=== PATIENT | male | born 1955 | race Caucasian/White ===

== ENCOUNTER 2018-11-20 07:26 | Inpatient (IN) | payer MEDICAID ==
[~2018-11-20] VITALS: Ht 167.6 cm; Wt 89.1 kg
--- NOTE | 2018-11-20 08:10 | ERD ---
ER Documentation Chief Complaint Chief Complaint left facial droop; left sided weakness; dizziness lwkt 1999 last night HPI This is a 63-year-old male with a past medical history of hypertension, hyperlipidemia, diabetes, stroke 1 month ago with no residual deficits, is now presenting with left-sided facial droop, dysarthria, left sided arm and leg weakness with decreased sensation, beginning when he woke up this morning at around 6 AM. His last known well time was around 8 PM last night. The patient's symptoms are beginning to improve. The patient does not endorse any alleviating or exacerbating factors. The patient denies feeling sick recently. The patient denies fever or chills. The patient has had no headache or vision changes. The patient does not endorse neck or back pain. The patient denies lightheadedness or dizziness. The patient has had no chest pain or trouble breathing. The patient denies nausea or vomiting. The patient denies abdominal pain. The patient denies changes to bowel movements or urination. ROS All systems reviewed and are negative except as per history of present illness. Medications Home Meds Reported Medications Calcium Carbonate ([id number]) 500 Mg Tablet, 500 MG PO DAILY, TAB 11/20/18 Losartan Potassium* (Losartan Potassium*) 25 Mg Tablet, 25 MG PO DAILY, TAB 11/20/18 Insulin Glargine,Hum.rec.anlog (Basaglar Kwikpen U-100) 100 Unit/1 Ml Insuln.pen, 30 UNIT SC QHS, EA 11/20/18 Metformin* (Glucophage*) 500 Mg Tab, 500 MG PO DAILY, #90 TAB 11/20/18 Aspirin* (Aspirin* Chew) 81 Mg Tab.chew, 81 MG PO DAILY, TAB.CHEW 11/20/18 Allergies Allergies: Coded Allergies: No Known Allergy (Unverified , 11/20/18) PMhx/Soc History of Surgery: No Anesthesia Reaction: No Hx Neurological Disorder: Yes (CVA with no residual deficits) Hx Respiratory Disorders: No Hx Cardiac Disorders: Yes (HTN, HLD, DM) Hx Psychiatric Problems: No Hx Miscellaneous Medical Probl: No Hx Alcohol Use: No Hx Substance Use: No Hx Tobacco Use: No FmHx Family History: No diabetes Physical Exam Vitals Vital Signs Date Temp Pulse Resp B/P (MAP) Pulse Ox O2 O2 Flow FiO2 Time Delivery Rate 11/20/18 66 14 191/116 100 09:11 (141) 11/20/18 69 171/103 08:27 (125) 11/20/18 73 183/105 08:04 (131) 11/20/18 Nasal 3 07:30 Cannula 11/20/18 98.0 76 16 169/98 96 07:26 (121) Physical Exam Const: No acute distress Head: Atraumatic Eyes: Normal Conjunctiva ENT: Normal External Ears, Nose and Mouth. Neck: Full range of motion. No meningismus. Resp: Clear to auscultation bilaterally Cardio: Regular rate and rhythm, no murmurs Abd: Soft, non tender, non distended. Normal bowel sounds Skin: No petechiae or rashes Back: No midline or flank tenderness Ext: No cyanosis, or edema Neur: Awake and alert. Mild decreased nasolabial fold on the left. 4+ out of 5 strength to the left upper and lower extremity. Subjective decreased sensation on the left, but objectively sensation is intact. Coordination is intact. Psych: Normal Mood and Affect Result Diagram: 11/20/18 0727 11/20/18 0738 Results 24 hrs Laboratory Tests Test 11/20/18 07:27 11/20/18 07:38 11/20/18 08:12 White Blood Count 5.7 10^3/ul Red Blood Count 4.68 10^6/ul Hemoglobin 12.4 g/dl Hematocrit 37.7 % Mean Corpuscular Volume 80.6 fl Mean Corpuscular Hemoglobin 26.5 pg Mean Corpuscular 32.9 g/dl Hemoglobin Concent Red Cell Distribution Width 13.2 % Platelet Count 198 10^3/UL Mean Platelet Volume 10.2 fl Immature Granulocytes % 0.400 % Neutrophils % 68.0 % Lymphocytes % 22.1 % Monocytes % 7.2 % Eosinophils % 1.6 % Basophils % 0.7 % Nucleated Red Blood Cells % 0.0 /100WBC Immature Granulocytes # 0.020 10^3/ul Neutrophils # 3.9 10^3/ul Lymphocytes # 1.3 10^3/ul Monocytes # 0.4 10^3/ul Eosinophils # 0.1 10^3/ul Basophils # 0.0 10^3/ul Nucleated Red Blood Cells # 0.0 10^3/ul Prothrombin Time 13.2 Sec Prothrombin Time Ratio 1.0 INR International Normalized Ratio 0.99 Activated Partial Thromboplast 28.6 Sec Time Sodium Level 137 mmol/L Potassium Level 3.4 mmol/L Chloride Level 99 mmol/L Carbon Dioxide Level 28 mmol/L Anion Gap 10 Blood Urea Nitrogen 15 mg/dl Creatinine 0.72 mg/dl Est Glomerular Filtrat Rate mL/min > 60 mL/min Glucose Level 326 mg/dl Hemoglobin A1c 10.6 % Calcium Level 9.2 mg/dl Creatine Kinase 93 IU/L Creatine Kinase Index 1.0 Creatinine Kinase MB (Mass) 0.91 ng/ml Troponin I < 0.012 ng/ml Triglycerides Level 135 mg/dl Cholesterol Level 214 mg/dl LDL Cholesterol, Calculated 133 mg/dl HDL Cholesterol 54 mg/dl Cholesterol/HDL Ratio 3.9 RATIO Ethyl Alcohol Level < 10.0 mg/dl Bedside Glucose 264 mg/dL Current Medications Medications Dose Sig/Tania Start Time Status Last (Trade) Ordered Route PRN Stop Time Admin Dose Reason Admin Aspirin 324 mg ONCE ONCE 11/20/18 DC 11/20/18 (Aspirin) PO 09:00 11/20/18 08:44 09:01 Clopidogrel 300 mg ONCE ONCE 11/20/18 DC 11/20/18 Bisulfate PO 09:00 11/20/18 08:53 (plaVIX) 09:01 Ondansetron 4 mg ER BRIDGE 11/20/18 HCl (Zofran PRN IV 09:00 Inj) NAUSEA/VOMITI 11/21/18 08:59 NG 650 mg ER BRIDGE 11/20/18 Acetaminophen PRN PO 09:00 (Tylenol .MILD PAIN 11/21/18 08:59 Tab) 1-3 OR TEMP Procedures/MDM MDM The patient's presentation warrants further investigation. Previous medical records, if available, were reviewed. LABS The patient's laboratory testing was obtained and reviewed. No emergent treatment was required unless described below. CBC: No E/o systemic infection or severe anemia or thrombocytopenia. Mild normocytic anemia, not emergent. Chemistry: No E/o severe acidosis or alkalosis or renal failure. Hyperglycemia without DKA. Hypokalemia, nonemergent. HbA1c: Elevated Lipid panel: Hyperlipidemia PT/INR: No E/o significant coagulopathy Troponin: No E/o acute ischemia Tox: No E/o alcohol use. EKG EKG read by me: Rate/Rhythm: Regular rate and rhythm at a rate of 78 bpm Intervals: Normal MD interval and QTc. Wide QRS in the setting of a right bundle branch block. [place]: Normal Impression: No evidence of acute ischemia or arrhythmia IMAGING Imaging and Radiology interpretation reviewed. CXR IMPRESSION: 1. Mild cardiomegaly with the pulmonary vasculature upper normal. Aorta appears tortuous. 2. Otherwise, unremarkable portable chest Electronically viewed and signed by Physician Gavino on 11/20/2018 08:26 CT Head FINDINGS: There is no intracranial hemorrhage, mass effect, or midline shift. No extra-axial fluid collection is seen. The ventricles and sulci are normal in size and configuration. The density of the brain is normal, and the vega white matter differentiation appears well-preserved. Moderate to severe atherosclerotic calcifications of the carotid siphons and intracranial vertebral arteries. The visualized paranasal sinuses and osseous structures are grossly unremarkable. IMPRESSION: 1. No evidence of acute intracranial pathology. 2. Moderate to severe atherosclerotic calcifications of the carotid siphons , intracranial vertebral arteries as well as basilar artery. Findings discussed with Dr. Orbien at 07:45 a.m. on 11/20/2018. Electronically viewed and signed by Physician Randal on 11/20/2018 07:51 CTA H&N 1. No flow-limiting intracranial stenosis or aneurysm. 2. 0-50 % stenosis of the bilateral extracranial internal carotid arteries by NASCET criteria. 3. Bilateral antegrade flow in the vertebral arteries. 4. 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 The lateral wall of the left maxillary sinus is imperceptible. Diagnostic considerations include odontogenic keratocyst, a dentigerous cyst, and a mucocele. Call report: Results were called to Myrna Arango at 11/20/2018 8:25:09 AM Electronically viewed and signed by Physician Odalis on 11/20/2018 08:26 TREATMENT/DISPOSITION The patient presents with now resolved left-sided deficits, concerning for a TIA. The patient's symptoms have since resolved. A code stroke was initiated. The patient had a stroke 1 month ago. He is outside the window for TPA. He has not a thrombectomy candidate. The [facility] teleneurologist, Dr. Cain, agreed with this assessment. She also felt that the symptoms could be related to a seizure event and recommended the possibility of obtaining an EEG in the hospital. She also recommended obtaining an MRI in the hospital. The patient was given a dose of aspirin and Plavix in the emergency department. ADMISSION At this time, I feel that the patient requires admission for further evaluation and management. The patient will be admitted to panel in accordance with the patient's insurance. The patient was accepted by Dr. Velásquez at 0836AM on 11/20/2018. Disclaimer: Inadvertent spelling and grammatical errors are likely due to EHR/dictation software use and do not reflect on the overall quality of patient care. Note that the electronic time recorded on this note does not necessarily reflect the actual time of the patient encounter. Departure Diagnosis: Primary Impression: TIA (transient ischemic attack) Additional Impressions: Facial droop Left-sided weakness Dysarthria Normocytic anemia Hyperglycemia Hypercholesterolemia Hypokalemia Condition: Serious MYRNA OBRIEN MD November 20, 2018 08:10
[2018-11-20] MEDS ORDERED: LOSA25TA12 PO (08:34)
[2018-11-20] MEDS ORDERED: INSU100I33 SC (08:34)
[2018-11-20] MEDS ORDERED: METF-849 PO (08:34)
[2018-11-20] MEDS ORDERED: ASPI-903 PO (08:34)
[2018-11-20] MEDS ORDERED: CALC500T91 PO (08:35)
[2018-11-20] MEDS ORDERED: ASPIRIN 81 MG TAB PO ONE (09:00)
[2018-11-20] MEDS ORDERED: ONDANSETRON 4 MG INJ IV PRN ×2 (09:00→12:00)
[2018-11-20] MEDS ORDERED: ACETAMINOPHEN 325 MG TAB PO PRN ×2 (09:00→12:00)
[2018-11-20] MEDS ORDERED: CLOPIDOGREL 75 MG TAB PO ONE (09:00)
--- NOTE | 2018-11-20 09:16 | STROKE ---
Date/Time of Note Date/Time of Note DATE: 11/20/18 TIME: 08:48 Patient Information General Patient location: emergency Arrival Date Age 63 Gender male Weight 85 kg POC Glucose Glucose Result Bedside Glucose - 72 Hours Test 11/20/18 08:12 Bedside Glucose 264 mg/dL (70-220) H Vital Signs Vital Signs Vital Signs Date Temp Pulse Resp B/P (MAP) Pulse Ox O2 O2 Flow FiO2 Time Delivery Rate 11/20/18 69 171/103 08:27 (125) 11/20/18 Nasal 3 07:30 Cannula 11/20/18 98.0 16 96 07:26 Patient History Current Medications Allergies: Coded Allergies: No Known Allergy (Unverified , 11/20/18) Labs Coagulation Labs: Coagulation Test 11/20/18 07:38 Activated Partial Thromboplast Time 28.6 Sec (23.0-35.0) History & Physical Patient History Notes Pt Hx Reviewed History of Present Illness 63yo with cardiac risk factors, CVA 1 month ago, now presents with recurrent left sided weakness. Last normal last night at 11pm. Now with left sided weakn ess and numbness with dysarthria. Review of Systems Constitutional: no symptoms reported EENTM: no symptoms reported Respiratory: no symptoms reported Cardiovascular: no symptoms reported Gastrointestinal: no symptoms reported Genitourinary: no symptoms reported Musculoskeletal: no symptoms reported Skin: no symptoms reported Psychiatric/Neurological: no symptoms reported All Other Systems: Reviewed and Negative NIH Stroke Scale NIH Stroke Scale [id number] l4d LOC Questions: Vptbc1m LOC Commands: Grzqj6k t Gaze: Kzhnd1g Mcjcs5p alsy: Cvnur3e rm - Left: Tigjq5x ight: Voxqu9g eft: Uzqnx0w ight: Okskh2p Rlgqz9i Laboe4c Viivv9s faina: Cxonj5u Ridov3w 4Bd Total Score: Hhdeh9v Date/Time Recorded DATE: 11/20/18 TIME: 08:[address] Cain t-PA Imaging Review Imaging Reviewed: Yes Date/Time Imaging Reviewed DATE: 11/20/18 TIME: 08:48 Imaging Findings No acute changes. t-PA Administration Recommendation: No Weight 85 kg Recommedation submitted by Lane Cain Reason t-PA not Recommended outside time window t-PA Not Recommended Date/Time 07:37 5/9/19 Recommendations Impression Diagnosis TIA Recommendation 63yo M presents with acute worsening of his baseline left sided weakness. Neurological exam is unremarkable. I believe the patient has had a transient ischemic attack but differential diagnosis also includes metabolic encephalopathy and seizure. CTA of the head and neck was completed and demonstrates no large vessel occlusion, but does demonstrate calcified atheroscl erotic plaque with mild flow limiting stenosis in bilateral carotid arteries. I recommend workup include MRI Brain with and without gadolinium, EEG, and metabolic/infectious workup. Consider TTE if acute ischemic stroke is seen on MRI Brain. Further workup is pending the results of these tests. I recommend patient be be given Plavix 300mg x1 followed by aspirin 81mg daily and Plavix 75mg daily for 3 weeks then continue Plavix 75mg daily. [id number] Diagnostic Labs: Nztet1l Lipid Proile Hgb A1C CMP CBC w/Diff Coags Urinaysis [id number] Therapy: [place] [facility] Speech Therapy Occupational [facility] [place]. Recommendations: Wbsum9w Bedside Swallow Evaluation Pnumatic Compression Devices Stroke Education Smoking Education LANE CAIN November 20, 2018 08:58
[2018-11-20] MEDS ORDERED: hydrALAzine 20 MG INJ IV PRN ×2 (10:30→12:00)
[2018-11-20] MEDS ORDERED: SOD CHLORIDE 0.45% 1,000 ML IV SCH (11:49)
[2018-11-20] MEDS ORDERED: NACL 0.9% 3 ML SYG IV SCH (12:00)
[2018-11-20] MEDS ORDERED: ALBUTEROL/IPRATROPIUM (NEB) 3 ML AMP HHN PRN (12:00)
[2018-11-20] MEDS ORDERED: HYDROCODONE/APAP (5/325) TAB PO PRN (12:00)
[2018-11-20] MEDS ORDERED: MAGNESIUM HYDROXIDE 30ML CUP PO PRN (12:00)
[2018-11-20] MEDS ORDERED: morphine 2 MG INJ IV PRN (12:00)
[2018-11-20] MEDS ORDERED: LORAZEPAM 2 MG INJ IV PRN (12:00)
[2018-11-20] MEDS ORDERED: NITROGLYCERIN (SL) 0.4 MG TAB SL PRN (12:00)
[2018-11-20] MEDS ORDERED: DOCUSATE SODIUM 100 MG CAP PO PRN (12:00)
[2018-11-20] MEDS ORDERED: GLUCOSE GEL 15 GRAM TUBE BUCCAL PRN (12:30)
[2018-11-20] MEDS ORDERED: DEXTROSE 50% 50 ML SYRINGE IV PRN ×2 (12:30)
[2018-11-20] MEDS ORDERED: GLUCOSE GEL 15 GRAM TUBE PO PRN ×2 (12:30)
[2018-11-20] MEDS ORDERED: GLUCAGON 1 MG INJ IM PRN (12:30)
[2018-11-20] MEDS: INSULIN ASPART [NOVOLOG] 3 ML PEN SC SCH ×3 (12:50→22:20)
[2018-11-20] MEDS: ASPIRIN 81 MG TAB PO SCH (13:54)
[2018-11-20] MEDS: ATORVASTATIN 80 MG TAB PO SCH (13:54)
[2018-11-20] MEDS ORDERED: LORAZEPAM 2 MG INJ IV ONE (14:00)
--- NOTE | 2018-11-20 15:15 | HP ---
DATE OF ADMISSION: 11/20/2018 IDENTIFICATION: This is a 63-year-old male. CHIEF COMPLAINT: Left-sided weakness symptoms. HISTORY OF PRESENT ILLNESS: A 63-year-old male with a prior history of stroke that occurred 1 month ago treated at [facility], hypertension, diabetes, high cholesterol, who presents after extensive lef t-sided weakness symptoms. The symptoms began as a left-sided facial droop and also some dysarthria. He also had some left upper and lower extremity weakness. The symptoms began early this morning. His last known well time apparently was around 8:00 last night. Denies any upper or lower GI bleedin g. No nausea, vomiting. No fevers or chills. No diarrhea or constipation. No chest pain, shortnes s of breath. He was brought in by EMS. When he arrived, he was found to have elevated systolic bloo d pressure in the 170 to 180 range and code stroke was called and the teleneurologist evaluated the p atient who recommended further brain imaging studies including head CT and CTA of head and neck. Thi s demonstrated no large vessel occlusion, but that did demonstrate calcified atherosclerotic plaque w ith mild flow limiting stenosis in the bilateral carotid arteries. Because of that, the patient got a dose of Plavix as recommended by the neurologist. The patient also received high dose aspirin as w ell. Presently, his symptoms appear to be resolving. PAST MEDICAL HISTORY: As stated above. ALLERGIES: NO KNOWN DRUG ALLERGIES. HOME MEDICATIONS: 1. Losartan 25 mg daily. 2. Aspirin 81 mg daily. 3. Calcium carbonate 500 mg daily. 4. Glargine insulin 30 units at night. 5. Metformin 500 mg daily. PAST SURGICAL HISTORY: Apparently none. SOCIAL HISTORY: Negative for smoking, drinking or IV drug abuse. FAMILY HISTORY: Noncontributory. PHYSICAL EXAMINATION: VITAL SIGNS: Today, T-max 98.0, pulse 76 to 66, respirations 14 to 16, blood pressure 169 to 191 sys tolic over 98 to 116 diastolic, satting at presently 100% on room air. GENERAL: The patient is lying in bed. is at bedside. No acute distress. HEENT: Pupils are equal, round, reactive to light. Extraocular muscles are intact. There appears t o be a slight left-sided facial droop. I am not sure if this is acute. NECK: Supple, no thyromegaly. LUNGS: Clear to auscultation bilaterally. CARDIOVASCULAR: S1, S2 heard. No rubs or gallops. ABDOMEN: Soft, nontender, nondistended. Normal bowel sounds. No rebound or guarding. MUSCULOSKELETAL: No lower extremity edema bilaterally. NEUROLOGIC: A 5/5 strength noted on the bilateral upper and lower extremities. Sensation appears to be intact to bilateral upper and lower extremities. Again, there is slight eyelid droop and facial droop on the left side. It is unclear if this is acute. Gait was not assessed. LABORATORIES: CBC is normal. The basic metabolic panel was normal. A1c is 10.6. Sugars are elevat ed in the mid to high 200 range. Troponin is negative x1. Total cholesterol is 214, but the rest of a lipid panel appears to be within range. Coags are normal. Blood alcohol level is less than 10. DIAGNOSTIC DATA: We mentioned the head CT findings that showed no acute intracranial pathology, but there was moderate to severe atherosclerotic calcifications of the carotid siphons, intracranial vert ebral artery as well as basilar artery. CT of head and neck showed no flow limiting intracranial eber nosis or aneurysms. There is 0% to 50% stenosis of the bilateral extracranial, internal carotid danni quincy, bilateral anterograde flow in the vertebral arteries. 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 The latera l wall of the left maxillary sinus is imperceptible, rule out odontogenic keratocyst, or mucoce le. Chest x-ray showed mild cardiomegaly with pulmonary vasculature upper normal, aorta appears tort uous; otherwise unremarkable chest x-ray. Carotid Doppler showed no evidence of any hemodynamically significant stenosis in the bilateral internal carotid arteries. ASSESSMENT AND PLAN: A 63-year-old male coming in with prior history of stroke 1 month ago, hyperten lizzeth, diabetes, high cholesterol who presents with left-sided weakness symptoms, rule out acute strok e versus transient ischemic attack. 1. Left-sided weakness symptoms, again rule out acute stroke versus transient ischemic attack. Admi t the patient. Do neuro checks every 4 hours. Continue high dose aspirin. Allow for permissive hyp ertension and high dose statin. Check echocardiogram. MRI of the brain and follow up final results of carotid Doppler study. Get a neurology consult, PT, OT, speech therapy consult. Check TSH, A1c, lipid panel. Per tele neurologist's recommendations, continue Plavix for now with aspirin 81 mg. 2. Hypertension. Again, allow for permissive hypertension at this time. Only hydralazine IV 10 mg systolic greater than 220. 3. Prior history of stroke. See #1. 4. Diabetes. Follow up A1c. Add sliding scale insulin. Continue home dose of Lantus. 5. High cholesterol. Continue high dose Lipitor. 6. Deep venous thrombosis prophylaxis. SCDs. Dictated By: ROXANNA MILLS/CHRISS Conf#: [id number] DID#: [id number] CC: GIBSON GODFREY;*EndCC*
--- NOTE | 2018-11-20 17:04 | CONS ---
Assessment/Plan Assessment/Plan Hospital Course 63 yo M with multiple cerebrovascular risk factors who presents for evaluation of transient L face/arm/leg weakness and dysarthria... for which neurology is consulted. MRI brain confirms multiple acute punctate infarcts in the R centrum semiovale. CTA H/N is unremarkable Echo is unrevealing. LDL 133 P: Agree with ASA/Lipitor for secondary stroke prevention Add ESR, RPR, UDS Cont BP and other medical management per primary PT/OT/ST as necessary Will follow clinically, to recommend neurologic studies, as necessary Consultation Date/Type/Reason Admit Date/Time Type of Consult Neurology Reason for Consultation L sided weakness Requesting Provider: ROXANNA CHONG Date/Time of Note DATE: 11/20/18 TIME: 17:04 Hx of Present Illness 63 yo M with hx of CVA, HTN, DM, HLD who presented to the ED with complaints of L face/arm/leg weakness with slurred speech. History was obtained from pt, family and chart review. The pt states that sx started around 8pm on 10/20. He reports that he initially had L facial weakness with difficulty speaking. He next noticed that he began to develop L arm and leg weakness, after which 911 was called and the pt was broug ht to the ED. He states that the sx lasted until about 10:30 this morning (10/21) after which they completely resolved. He currently denies headache, weakness, dizziness, lightheadedness, vision or sp eech changes, numbness or tingling, gait instability. It is additionally elsewhere noted: CHIEF COMPLAINT: Left-sided weakness symptoms. HISTORY OF PRESENT ILLNESS: A 63-year-old male with a prior history of stroke that occurred 1 month ago treated at [facility], hypertension, diabetes, high ch olesterol, who presents after extensive left-sided weakness symptoms. The symptoms began as a left-sided facial droop and also some dysarthria. He also had some left upper and lower extremity weakness. The symptoms began early this morning. His last known well time apparently was around 8:00 last night. Denies any upper or lower GI bleeding. No nausea, vomiting. No fevers or chills. No diarrhea or constipation. No chest pain, shortness of breath. He was brought in by EMS. When he arrived, he was found to have elevated systolic blood pressure in the 170 to 180 range and code stroke was called and the teleneurologist evaluated the patient who recommended further brain imaging studies including head CT and CTA of head and neck. This demonstrated no large vessel occlusion, but that did demonstrate calcified atherosclerotic plaque with mild flow limiting stenosis in the bilateral carotid arteries. Because of that, the patient got a dose of Plavix as recommended by the neurologist. The patient also received high dose aspirin as well. Presently, his symptoms appear to be resolving. negative unless noted otherwise in HPI Exam/Review of Systems Exam Vitals Vital Signs Date Temp Pulse Resp B/P (MAP) Pulse Ox O2 O2 Flow FiO2 Time Delivery Rate 11/20/18 98.0 89 12 161/90 98 Room Air 13:40 (113) 11/20/18 3 07:30 Exam PE: Gen Appearance: No Apparent Distress HEENT: Normocephalic Cardiovascular: Regular rate Lungs: Clear bilaterally Abdomen: Soft Extremities: Dry NE: The patient was alert and oriented.. Language was normal. Fund of knowledge was normal. Pupils were equal and reactive to light. There was no afferent pupillary defect. Visual cortes were normal. Funduscopic examination was limited. Extra-ocular movements were full. Ptosis was absent. There was no nystagmus. Facial sensation was normal. Face was symmetric with normal strength. Hearing was intact. Palate movements were normal. Neck strength was normal. There was normal tongue bulk and speed of movement. Tone was normal. Muscle bulk was normal. I did not see fasciculations. Arms and legs were strong. Vibration sensation was normal. Temperature and pinprick sensation was normal. Rapid alternating movements were normal. There was no dysmetria. There was no intention tremor. Gait was deferred due to bedrest. Arm and leg reflexes were 2+ and symmetric. Arevalo's sign was absent. Plantar responses were flexor. Results Result Diagram: 11/20/18 0727 11/20/18 0738 Results 24hrs Laboratory Tests Test 11/20/18 07:27 11/20/18 07:38 11/20/18 08:12 11/20/18 12:47 White Blood Count 5.7 Red Blood Count 4.68 L Hemoglobin 12.4 L Hematocrit 37.7 L Mean Corpuscular Volume 80.6 L Mean Corpuscular 26.5 L Hemoglobin Mean Corpuscular 32.9 Hemoglobin Concent Red Cell Distribution 13.2 Width Platelet Count 198 Mean Platelet Volume 10.2 Immature Granulocytes % 0.400 Neutrophils % 68.0 Lymphocytes % 22.1 Monocytes % 7.2 Eosinophils % 1.6 Basophils % 0.7 Nucleated Red Blood 0.0 Cells % Immature Granulocytes # 0.020 Neutrophils # 3.9 Lymphocytes # 1.3 Monocytes # 0.4 Eosinophils # 0.1 Basophils # 0.0 Nucleated Red Blood 0.0 Cells # Prothrombin Time 13.2 Prothrombin Time Ratio 1.0 INR International 0.99 Normalized Ratio Activated 28.6 Partial Thromboplast Time Sodium Level 137 Potassium Level 3.4 L Chloride Level 99 Carbon Dioxide Level 28 Anion Gap 10 Blood Urea Nitrogen 15 Creatinine 0.72 Est Glomerular Filtrat > 60 Rate mL/min Glucose Level 326 H Hemoglobin A1c 10.6 H Calcium Level 9.2 Creatine Kinase 93 Creatine Kinase Index 1.0 Creatinine Kinase MB 0.91 (Mass) Troponin I < 0.012 Triglycerides Level 135 Cholesterol Level 214 H LDL Cholesterol, 133 Calculated HDL Cholesterol 54 Cholesterol/HDL Ratio 3.9 Free Thyroxine 1.20 Ethyl Alcohol Level < 10.0 H Bedside Glucose 264 H 201 Medications Medication Current Medications IV Flush (NS 3 ml) 3 ml PER PROTOCOL IV ; Start 11/20/18 at 12:00 Ondansetron HCl (Zofran Inj) 4 mg Q6H PRN IV NAUSEA/VOMITING; Start 11/20/18 at 12:00 Acetaminophen (Tylenol Tab) 650 mg Q6H PRN PO .PAIN 1-3 OR TEMP; Start 11/20/18 at 12:00 Acetaminophen/ Hydrocodone Bitart ([place] (5/325)) 1 tab Q6H PRN PO .MOD PAIN 4- 6; Start 11/20/18 at 12:00 Morphine Sulfate (morphine) 2 mg Q4H PRN IV .SEVERE PAIN 7-10; Start 11/20/18 at 12:00 Docusate Sodium (Colace) 100 mg Q12H PRN PO .CONSTIPATION; Start 11/20/18 at 12:00 Magnesium Hydroxide (Milk Of Mag) 30 ml DAILY PRN PO .CONSTIPATION; Start 11/20/18 at 12:00 Sodium Chloride 1,000 ml @ 75 mls/hr [id number] IV Last administered on 11/20/18at 13:54; Admin Dose 75 MLS/HR; Start 11/20/18 at 11:49 Lorazepam (Ativan) 0.5 mg Q6H PRN IV ANXIETY; Start 11/20/18 at 12:00 Albuterol/ Ipratropium (Duoneb) 3 ml Q4H RESP THERAPY PRN HHN SHORTNESS OF BREATH; Start 11/20/18 at 12:00 Hydralazine HCl (Apresoline) 10 mg Q6H PRN IV ELEVATED BLOOD PRESSURE; Start at 12:00 Nitroglycerin (Nitroglycerin (Sl Tab) 0.4 Mg) 1 tab Q5M PRN SL ANGINA; Start 11/20/18 at 12:00 Diagnostic Test (Pha) (Accu-Chek) 1 ea 02 XX ; Start 11/21/18 at 02:00 Insulin Aspart (Novolog Insulin Pen) NOVOLOG *MILD* ALGORI... Q4 SC ; Start 11/20/18 at 13:00 Aspirin (Aspirin) 81 mg DAILY PO Last administered on 11/20/18at 13:54; Admin Dose 81 MG; Start 11/20/18 at 12:00 Calcium Carbonate (Oyster Shell Calcium) 1.25 gm DAILY PO ; Start 11/21/18 at 09:00 Insulin Glargine (Lantus) 30 units QHS SC ; Start 11/20/18 at 21:00 Atorvastatin Calcium (Lipitor) 80 mg DAILY PO Last administered on 11/20/18at 13:54; Admin Dose 80 MG; Start 11/20/18 at 12:00 Clopidogrel Bisulfate (plaVIX) 75 mg DAILY PO ; Start 11/21/18 at 09:00 Miscellaneous Information 1 ea NOTE XX ; Start 11/20/18 at 12:30 Glucose (Glutose) 15 gm Q15M PRN PO DECREASED GLUCOSE; Start 11/20/18 at 12:30 Glucose (Glutose) 22.5 gm Q15M PRN PO DECREASED GLUCOSE; Start 11/20/18 at 12:30 Dextrose (D50w Syringe) 25 ml Q15M PRN IV DECREASED GLUCOSE; Start 11/20/18 at 12:30 Dextrose (D50w Syringe) 50 ml Q15M PRN IV DECREASED GLUCOSE; Start 11/20/18 at 12:30 Glucagon (Glucagen) 1 mg Q15M PRN IM DECREASED GLUCOSE; Start 11/20/18 at 12:30 Glucose (Glutose) 15 gm Q15M PRN BUCCAL DECREASED GLUCOSE; Start 11/20/18 at 12:30 Past Medical History reviewed Home Meds Reported Medications Calcium Carbonate ([id number]) 500 Mg Tablet, 500 MG PO DAILY, TAB 11/20/18 Losartan Potassium* (Losartan Potassium*) 25 Mg Tablet, 25 MG PO DAILY, TAB 11/20/18 Insulin Glargine,Hum.rec.anlog (Basaglar Kwikpen U-100) 100 Unit/1 Ml Insuln.pen, 30 UNIT SC QHS, EA 11/20/18 Metformin* (Glucophage*) 500 Mg Tab, 500 MG PO DAILY, #90 TAB 11/20/18 Aspirin* (Aspirin* Chew) 81 Mg Tab.chew, 81 MG PO DAILY, TAB.CHEW 11/20/18 Medications Current Medications IV Flush (NS 3 ml) 3 ml PER PROTOCOL IV ; Start 11/20/18 at 12:00 Ondansetron HCl (Zofran Inj) 4 mg Q6H PRN IV NAUSEA/VOMITING; Start 11/20/18 at 12:00 Acetaminophen (Tylenol Tab) 650 mg Q6H PRN PO .PAIN 1-3 OR TEMP; Start 11/20/18 at 12:00 Acetaminophen/ Hydrocodone Bitart ([place] (5/325)) 1 tab Q6H PRN PO .MOD PAIN 4- 6; Start 11/20/18 at 12:00 Morphine Sulfate (morphine) 2 mg Q4H PRN IV .SEVERE PAIN 7-10; Start 11/20/18 at 12:00 Docusate Sodium (Colace) 100 mg Q12H PRN PO .CONSTIPATION; Start 11/20/18 at 12:00 Magnesium Hydroxide (Milk Of Mag) 30 ml DAILY PRN PO .CONSTIPATION; Start 11/20/18 at 12:00 Sodium Chloride 1,000 ml @ 75 mls/hr [id number] IV Last administered on 11/20/18at 13:54; Admin Dose 75 MLS/HR; Start 11/20/18 at 11:49 Lorazepam (Ativan) 0.5 mg Q6H PRN IV ANXIETY; Start 11/20/18 at 12:00 Albuterol/ Ipratropium (Duoneb) 3 ml Q4H RESP THERAPY PRN HHN SHORTNESS OF BREATH; Start 11/20/18 at 12:00 Hydralazine HCl (Apresoline) 10 mg Q6H PRN IV ELEVATED BLOOD PRESSURE; Start 11/20/18 at 12:00 Nitroglycerin (Nitroglycerin (Sl Tab) 0.4 Mg) 1 tab Q5M PRN SL ANGINA; Start 11/20/18 at 12:00 Diagnostic Test (Pha) (Accu-Chek) 1 ea 02 XX ; Start 11/21/18 at 02:00 Insulin Aspart (Novolog Insulin Pen) NOVOLOG *MILD* ALGORI... Q4 SC ; Start 11/20/18 at 13:00 Aspirin (Aspirin) 81 mg DAILY PO Last administered on 11/20/18at 13:54; Admin Dose 81 MG; Start 11/20/18 at 12:00 Calcium Carbonate (Oyster Shell Calcium) 1.25 gm DAILY PO ; Start 11/21/18 at 09:00 Insulin Glargine (Lantus) 30 units QHS SC ; Start 11/20/18 at 21:00 Atorvastatin Calcium (Lipitor) 80 mg DAILY PO Last administered on 11/20/18at 13:54; Admin Dose 80 MG; Start 11/20/18 at 12:00 Clopidogrel Bisulfate (plaVIX) 75 mg DAILY PO ; Start 11/21/18 at 09:00 Miscellaneous Information 1 ea NOTE XX ; Start 11/20/18 at 12:30 Glucose (Glutose) 15 gm Q15M PRN PO DECREASED GLUCOSE; Start 11/20/18 at 12:30 Glucose (Glutose) 22.5 gm Q15M PRN PO DECREASED GLUCOSE; Start 11/20/18 at 12:30 Dextrose (D50w Syringe) 25 ml Q15M PRN IV DECREASED GLUCOSE; Start 11/20/18 at 12:30 Dextrose (D50w Syringe) 50 ml Q15M PRN IV DECREASED GLUCOSE; Start 11/20/18 at 12:30 Glucagon (Glucagen) 1 mg Q15M PRN IM DECREASED GLUCOSE; Start 11/20/18 at 12:30 Glucose (Glutose) 15 gm Q15M PRN BUCCAL DECREASED GLUCOSE; Start 11/20/18 at 12:30 Allergies: Coded Allergies: No Known Allergy (Unverified , 11/20/18) Past Surgical History reviewed Social History reviewed Smoking Status: Never smoker BRANDI GARZA NP November 20, 2018 17:04 GIBSON GODFREY November 21, 2018 06:49
[2018-11-20 19:00] VITALS: PULSE 90
--- NOTE | 2018-11-20 19:05 | RADRPT ---
Echocardiogram Report Patient Name: Krupa HAWKINSnt ID: [id number] : 1955 (63y 5m)Study Date: 11/20/2018 12:53:30 PM Gender: MAccession #: [id number] Tech: Analy Poole RDCS Location: [facility] Ref.Physician: ROXANNA CHONG Height(Cm): BSA: Weight(Kg): Quality: AdequateAccount #: Procedures: Echocardiographic Report: Transthoracic echocardiogram with complete 2D, M-Mode, and doppler examination. Indications: Transient Ischemic Attack. Measurements: 2D/M Mode Doppler Measurement Value Normal Range Measurement Value Normal Range LVIDd 2D 4.3 [ 4.2 - 5.8 ] cm AV Peak Tam 1.5 [ 100.0 - 170.0 ] cm/sec LVIDs 2D 3.1 [ 2.5 - 4.0 ] cm AV Peak PG 8.0 [ 2.0 - 9.0 ] mmHg LVPWd 2D 1.2 [ 0.6 - 1.0 ] cm LVOT Peak Tam 1.2 [ 70.0 - 110.0 ] cm/sec IVSd 2D 1.2 [ 0.6 - 1.0 ] cm LVOT Peak PG 6.0 [ 2.0 - 6.0 ] mmHg AoR Diam 2D 3.5 [ 2.6 - 3.4 ] cm MV E Peak Tam 0.7 [ 60.0 - 130.0 ] cm/sec EDV 2D 84.4 [ 62.0 - 150.0 ] ml MV A Peak Tam 0.9 [ 100.0 - 120.0 ] cm/sec ESV 2D 37.3 [ 21.0 - 61.0 ] ml MV E/A 0.7 [ 0.8 - 1.5 ] ratio EF 2D 55.8 [ 52.0 - 72.0 ] percent MV Decel Time 215 [ 104 - 258 ] msec LA Dimen 2D 3.8 [ 3.0 - 4.0 ] cm Lat E` Tam 0.1 [ 10.0 - 15.0 ] cm/sec Lateral E/E` 8.0 [ 1.0 - 2.0 ] ratio Med E` Tam 0.1 cm/sec MV E/A 0.7 [ 0.8 - 1.5 ] ratio TR Peak Tam 1.8 [ 100.0 - 280.0 ] cm/sec TR Peak PG 13.0 mmHg RVSP 16.0 [ 10.0 - 36.0 ] mmHg RA Pressure 3.0 mmHg Findings: Left Ventricle: Normal left ventricular systolic function. Normal left ventricular cavity size. Mild concentric left ventricular hypertrophy. Ejection fraction is visually estimated at 60 %. Tissue Doppler/Mitral Doppler indices are consistent with impaired relaxation (Stage I diastolic dysfunction). Right Ventricle: Normal right ventricular size. Normal right ventricular systolic function. Left Atrium: The left atrium is normal in size. Right Atrium: The right atrium is normal in size. Mitral Valve: Normal appearance and function of the mitral valve with trace physiologic regurgitation. Aortic Valve: Normal appearance of the aortic valve. No significant aortic stenosis or insufficiency. Tricuspid Valve: Normal appearance of the tricuspid valve. Estimated peak PA systolic pressure 16 mmHg. There is trace tricuspid regurgitation. Pulmonic Valve: Normal pulmonic valve appearance. Pericardium: Normal pericardium with no significant pericardial effusion. Aorta: Normal aortic root. IVC: Normal size and normal respiratory collapse consistent with normal right atrial pressure. Conclusions: Normal left ventricular systolic function. Normal left ventricular cavity size. Mild concentric left ventricular hypertrophy. Ejection fraction is visually estimated at 60 %. Tissue Doppler/Mitral Doppler indices are consistent with impaired relaxation (Stage I diastolic dysfunction). Normal right ventricular size. Normal right ventricular systolic function. The left atrium is normal in size. The right atrium is normal in size. No significant valvular stenosis or regurgitation seen. Normal pericardium with no significant pericardial effusion. Electronically Signed By: Mio Calderon 2018-11-20 19:04:52 PDT
[2018-11-20 20:00] VITALS: PULSE 84; Ht 167.6 cm; Wt 89.1 kg
[2018-11-20 20:33] VITALS: BP 169/103; PULSE 93; RESP 18
[2018-11-20] MEDS: INSULIN GLARGINE [LANTus] (100 UNITS/ML) SYG SC SCH (22:20)
[2018-11-21] VITALS (12 sets, daily range): BP systolic 133–170; BP diastolic 85–100; PULSE 79–114; RESP 16–19
[2018-11-21] MEDS: INSULIN ASPART [NOVOLOG] 3 ML PEN SC SCH ×6 (00:16→21:01)
[2018-11-21] MEDS: ACCU-CHEK XX SCH (01:16)
[2018-11-21] MEDS: ATORVASTATIN 80 MG TAB PO SCH (08:37)
[2018-11-21] MEDS: ASPIRIN 81 MG TAB PO SCH (08:38)
[2018-11-21] MEDS: CLOPIDOGREL 75 MG TAB PO SCH (08:38)
[2018-11-21] MEDS: CALCIUM CARBONATE 1.25 GM TAB PO SCH (08:38)
[2018-11-21] MEDS ORDERED: POTASSIUM CHLORIDE (SR) 20 MEQ TAB PO STA (11:32)
--- NOTE | 2018-11-21 11:38 | PN ---
Date/Time of Note Date/Time of Note DATE: 11/21/18 TIME: 11:35 Assessment/Plan VTE Prophylaxis Risk score (from Ns)>0 risk: 3 SCD applied (from Ns): Yes Pharmacological prophylaxis: other Lines/Catheters IV [facility]from [facility] [place]ine Lock Assessment/Plan Hospital Course S: Patient had no acute events overnight, seen by therapy teams along with neurology team. O: VS- see below PHYSICAL EXAMINATION:r. GENERAL: lying in bed, No acute distress. HEENT: Pupils are equal, round, reactive to light. Extraocular muscles are intact. There appears to be a slight left-sided facial droop. I am not sure if this is acute. NECK: Supple, no thyromegaly. LUNGS: Clear to auscultation bilaterally. CARDIOVASCULAR: S1, S2 heard. No rubs or gallops. ABDOMEN: Soft, nontender, nondistended. Normal bowel sounds. No rebound or guarding. MUSCULOSKELETAL: No lower extremity edema bilaterally. NEUROLOGIC: slight eyelid droop and facial droop on the left side. Otherwise no other focal deficits noted MRI brain: IMPRESSION: 1. 3 punctate areas of acute/recent infarct involving the right centrum semiovale white matter, with the largest measuring 5 x 8 mm. No evidence of hemorrhagic conversion. 2. No intracranial hemorrhage, mass lesion or hydrocephalous. 3. Mild peripheral and central cerebral volume loss. 4. Mild punctate periventricular and subcortical white matter lesions, likely related to chronic microangiopathic changes. CTA head neck: Impression: - no acute intracranial pathology, but there was moderate to severe atherosclerotic calcifications of the carotid siphons, intracranial vertebral artery as well as basilar artery. CT of head and neck showed no flow limiting intracranial stenosis or aneurysms. There is 0% to 50% stenosis of the bilateral extracranial, internal carotid arteries, bilateral anterograde flow in the vertebral arteries. 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 The lateral wall of the left maxillary sinus is imperceptible, rule out odontogenic keratocyst, or mucocele. ASSESSMENT AND PLAN: 63-year-old male coming in with prior history of stroke 1 month ago, hypertension, diabetes, high cholesterol who presents with left-sided weakness symptoms, rule out acute stroke versus transient ischemic attack. 1. Left-sided weakness symptoms- again MRI brain shows 3 punctate areas of acute/recent infarct involving the right centrum semiovale white matter. -Continue neuro checks every 4 hours, high dose aspirin. -Allow for permissive hypertension and high dose statin, and now Plavix -Follow-up further recommendations from neurology consult, PT, OT, speech therapy consult. 2. Hypertension. - Again, allow for permissive hypertension at this time, Only hydralazine IV 10 mg systolic greater than 220. 3. Prior history of stroke. See #1. 4. Diabetes- A1c -10.3 -Monitor, continue sliding scale insulin and continue home dose of Lantus. 5. High cholesterol. - Continue Lipitor. 6. Deep venous thrombosis prophylaxis. SCDs. Result Diagram: 11/21/1852111/21/18521 Results 24hrs Laboratory Tests Test 11/20/18 12:47 11/20/18 22:01 11/21/18 00:05 11/21/18 04:23 Bedside Glucose 201 170 173 154 Test 11/21/18 05:22 11/21/18 08:40 White Blood Count 7.8 # Red Blood Count 5.11 Hemoglobin 13.4 L Hematocrit 40.4 L Mean Corpuscular 79.1 L Volume Mean Corpuscular 26.2 L Hemoglobin Mean Corpuscular 33.2 Hemoglobin Concent Red Cell 13.3 Distribution Width Platelet Count 223 Mean Platelet Volume 9.8 Immature 0.300 Granulocytes % Neutrophils % 76.2 Lymphocytes % 14.7 L Monocytes % 7.3 Eosinophils % 1.1 Basophils % 0.4 Nucleated Red Blood 0.0 Cells % Immature 0.020 Granulocytes # Neutrophils # 6.0 Lymphocytes # 1.2 Monocytes # 0.6 Eosinophils # 0.1 Basophils # 0.0 Nucleated Red Blood 0.0 Cells # Erythrocyte 32.0 H Sedimentation Rate Sodium Level 139 Potassium Level 3.3 L Chloride Level 101 Carbon Dioxide Level 30 Anion Gap 8 Blood Urea Nitrogen 15 Creatinine 0.71 Est Glomerular > 60 Filtrat Rate mL/min Glucose Level 171 # Hemoglobin A1c 10.3 H Calcium Level 9.5 Phosphorus Level 4.1 Magnesium Level 2.2 Triglycerides Level 120 Cholesterol Level 229 H LDL Cholesterol, 142 Calculated HDL Cholesterol 63 Cholesterol/HDL 3.6 Ratio Thyroid Stimulating 1.440 Hormone (TSH) Bedside Glucose 163 Exam/Review of Systems Exam Vitals Vital Signs Date Temp Pulse Resp B/P (MAP) Pulse Ox O2 O2 Flow FiO2 Time Delivery Rate 11/21/18 88 08:55 11/21/18 98.5 19 148/85 97 07:20 (106) 11/20/18 Room Air 18:35 11/20/18 3 07:30 Intake and Output 11/20/18 11/20/18 11/21/18 1515:00 23:00 07:00 IntakeIntake Total 300 ml BalanceBalance 300 ml Results Results 24hrs Laboratory Tests Test 11/20/18 12:47 11/20/18 22:01 11/21/18 00:05 11/21/18 04:23 Bedside Glucose 201 170 173 154 Test 11/21/18 05:22 11/21/18 08:40 White Blood Count 7.8 # Red Blood Count 5.11 Hemoglobin 13.4 L Hematocrit 40.4 L Mean Corpuscular 79.1 L Volume Mean Corpuscular 26.2 L Hemoglobin Mean Corpuscular 33.2 Hemoglobin Concent Red Cell 13.3 Distribution Width Platelet Count 223 Mean Platelet Volume 9.8 Immature 0.300 Granulocytes % Neutrophils % 76.2 Lymphocytes % 14.7 L Monocytes % 7.3 Eosinophils % 1.1 Basophils % 0.4 Nucleated Red Blood 0.0 Cells % Immature 0.020 Granulocytes # Neutrophils # 6.0 Lymphocytes # 1.2 Monocytes # 0.6 Eosinophils # 0.1 Basophils # 0.0 Nucleated Red Blood 0.0 Cells # Erythrocyte 32.0 H Sedimentation Rate Sodium Level 139 Potassium Level 3.3 L Chloride Level 101 Carbon Dioxide Level 30 Anion Gap 8 Blood Urea Nitrogen 15 Creatinine 0.71 Est Glomerular > 60 Filtrat Rate mL/min Glucose Level 171 # Hemoglobin A1c 10.3 H Calcium Level 9.5 Phosphorus Level 4.1 Magnesium Level 2.2 Triglycerides Level 120 Cholesterol Level 229 H LDL Cholesterol, 142 Calculated HDL Cholesterol 63 Cholesterol/HDL 3.6 Ratio Thyroid Stimulating 1.440 Hormone (TSH) Bedside Glucose 163 Medications Medication Current Medications IV Flush (NS 3 ml) 3 ml PER PROTOCOL IV ; Start 11/20/18 at 12:00 Ondansetron HCl (Zofran Inj) 4 mg Q6H PRN IV NAUSEA/VOMITING; Start 11/20/18 at 12:00 Acetaminophen (Tylenol Tab) 650 mg Q6H PRN PO .PAIN 1-3 OR TEMP; Start 11/20/18 at 12:00 Acetaminophen/ Hydrocodone Bitart ([place] (5/325)) 1 tab Q6H PRN PO .MOD PAIN 4- 6; Start 11/20/18 at 12:00 Morphine Sulfate (morphine) 2 mg Q4H PRN IV .SEVERE PAIN 7-10; Start 11/20/18 at 12:00 Docusate Sodium (Colace) 100 mg Q12H PRN PO .CONSTIPATION; Start 11/20/18 at 12:00 Magnesium Hydroxide (Milk Of Mag) 30 ml DAILY PRN PO .CONSTIPATION; Start 11/20/18 at 12:00 Sodium Chloride 1,000 ml @ 75 mls/hr [id number] IV Last administered on 11/20/18at 13:54; Admin Dose 75 MLS/HR; Start 11/20/18 at 11:49 Lorazepam (Ativan) 0.5 mg Q6H PRN IV ANXIETY; Start 11/20/18 at 12:00 Albuterol/ Ipratropium (Duoneb) 3 ml Q4H RESP THERAPY PRN HHN SHORTNESS OF BREATH; Start 11/20/18 at 12:00 Hydralazine HCl (Apresoline) 10 mg Q6H PRN IV ELEVATED BLOOD PRESSURE; Start 11/20/18 at 12:00 Nitroglycerin (Nitroglycerin (Sl Tab) 0.4 Mg) 1 tab Q5M PRN SL ANGINA; Start 11/20/18 at 12:00 Diagnostic Test (Pha) (Accu-Chek) 1 ea 02 XX ; Start 11/21/18 at 02:00 Insulin Aspart (Novolog Insulin Pen) NOVOLOG *MILD* ALGORI... Q4 SC Last administered on 11/21/18at 08:48; Admin Dose 1 UNIT; Start 11/20/18 at 13:00 Aspirin (Aspirin) 81 mg DAILY PO Last administered on 11/21/18at 08:38; Admin Dose 81 MG; Start 11/20/18 at 12:00 Calcium Carbonate (Oyster Shell Calcium) 1.25 gm DAILY PO Last administered on 11/21/18at 08:38; Admin Dose 1.25 GM; Start 11/21/18 at 09:00 Insulin Glargine (Lantus) 30 units QHS SC Last administered on 11/20/18at 22:20; Admin Dose 30 UNITS; Start 11/20/18 at 21:00 Atorvastatin Calcium (Lipitor) 80 mg DAILY PO Last administered on 11/21/18at 08:37; Admin Dose 80 MG; Start 11/20/18 at 12:00 Clopidogrel Bisulfate (plaVIX) 75 mg DAILY PO Last administered on 11/21/18at 08:38; Admin Dose 75 MG; Start 11/21/18 at 09:00 Miscellaneous Information 1 ea NOTE XX ; Start 11/20/18 at 12:30 Glucose (Glutose) 15 gm Q15M PRN PO DECREASED GLUCOSE; Start 11/20/18 at 12:30 Glucose (Glutose) 22.5 gm Q15M PRN PO DECREASED GLUCOSE; Start 11/20/18 at 12:30 Dextrose (D50w Syringe) 25 ml Q15M PRN IV DECREASED GLUCOSE; Start 11/20/18 at 12:30 Dextrose (D50w Syringe) 50 ml Q15M PRN IV DECREASED GLUCOSE; Start 11/20/18 at 12:30 Glucagon (Glucagen) 1 mg Q15M PRN IM DECREASED GLUCOSE; Start 11/20/18 at 12:30 Glucose (Glutose) 15 gm Q15M PRN BUCCAL DECREASED GLUCOSE; Start 11/20/18 at 12:30 Potassium Chloride (Klor-Con 20) 40 meq ONCE STAT PO ; Start 11/21/18 at 11:32; Stop 11/21/18 at 11:33 ROXANNA CHONG November 21, 2018 11:38
--- NOTE | 2018-11-21 17:02 | CONS ---
Assessment/Plan Assessment/Plan Hospital Course 63 yo M with multiple cerebrovascular risk factors who presents for evaluation of transient L face/arm/leg weakness and dysarthria... for which neurology is consulted. MRI brain confirms multiple acute punctate infarcts in the R centrum semiovale. CTA H/N is unremarkable Echo is unrevealing. LDL 133, ESR 32, RPR neg, UDS neg P: Agree with ASA/Lipitor for secondary stroke prevention Cont BP and other medical management per primary PT/OT/ST as necessary Will follow clinically, to recommend neurologic studies, as necessary Consultation Date/Type/Reason Admit Date/Time November 20, 2018 at 08:52 Type of Consult Neurology Reason for Consultation L sided weakness Requesting Provider: ROXANNA CHONG Date/Time of Note DATE: 11/21/18 TIME: 17:01 24 HR Interval Summary Free Text/Dictation Continues acute care. Exam Vital Signs Vitals Vital Signs Date Temp Pulse Resp B/P (MAP) Pulse Ox O2 O2 Flow FiO2 Time Delivery Rate 11/21/18 104 16:25 11/21/18 98.0 19 159/97 94 15:28 (117) 11/20/18 Room Air 18:35 11/20/18 3 07:30 Intake and Output 11/20/18 11/20/18 11/21/18 1515:00 23:00 07:00 IntakeIntake Total 300 ml BalanceBalance 300 ml Exam PE: Gen Appearance: No Apparent Distress HEENT: Normocephalic Cardiovascular: Regular rate Lungs: Clear bilaterally Abdomen: Soft Extremities: Dry NE: The patient was alert and oriented. Language was normal. Fund of knowledge was normal. Pupils were equal and reactive to light. There was no afferent pupillary defect. Visual cortes were normal. Funduscopic examination was limited. Extra-ocular movements were full. Ptosis was absent. There was no nystagmus. Facial sensation was normal. Face was symmetric with normal strength. Hearing was intact. Palate movements were normal. Neck strength was normal. There was normal tongue bulk and speed of movement. Tone was normal. Muscle bulk was normal. I did not see fasciculations. Arms and legs were strong. Vibration sensation was normal. Temperature and pinprick sensation was normal. Rapid alternating movements were normal. There was no dysmetria. There was no intention tremor. Gait was deferred due to bedrest. Arm and leg reflexes were 2+ and symmetric. Arevalo's sign was absent. Plantar responses were flexor. BRANDI GARZA NP November 21, 2018 17:02 GIBSON GODFREY November 22, 2018 06:44
[2018-11-21] MEDS: INSULIN GLARGINE [LANTus] (100 UNITS/ML) SYG SC SCH (21:01)
[2018-11-22] VITALS (8 sets, daily range): BP systolic 151–179; BP diastolic 91–109; PULSE 90–151; RESP 18–19
[2018-11-22] MEDS: ACCU-CHEK XX SCH (02:00)
[2018-11-22] MEDS: ATORVASTATIN 80 MG TAB PO SCH (08:21)
[2018-11-22] MEDS: CLOPIDOGREL 75 MG TAB PO SCH (08:21)
[2018-11-22] MEDS: ASPIRIN 81 MG TAB PO SCH (08:22)
[2018-11-22] MEDS: CALCIUM CARBONATE 1.25 GM TAB PO SCH (08:22)
--- NOTE | 2018-11-22 09:42 | CONS ---
Assessment/Plan Assessment/Plan Hospital Course 63 yo M with multiple cerebrovascular risk factors who presents for evaluation of transient L face/arm/leg weakness and dysarthria... for which neurology is consulted. MRI brain confirms multiple acute punctate infarcts in the R centrum semiovale. CTA H is unremarkable; CTA N shows mild BL ICA stenosis, which may be a possible contributor Echo is unrevealing. LDL 133, ESR 32, RPR neg, UDS neg P: Agree with ASA/Plavix for secondary stroke prevention; transition to monotherapy with Plavix after 3 mo Cont Lipitor for the same Cont BP and other medical management per primary PT/OT/ST as necessary Will follow clinically, to recommend neurologic studies, as necessary Consultation Date/Type/Reason Admit Date/Time November 20, 2018 at 08:52 Type of Consult Neurology Reason for Consultation L sided weakness Requesting Provider: ROXANNA CHONG Date/Time of Note DATE: 11/22/18 TIME: 09:41 Exam Vital Signs Vitals Vital Signs Date Temp Pulse Resp B/P (MAP) Pulse Ox O2 O2 Flow FiO2 Time Delivery Rate 11/22/18 92 08:00 11/22/18 97.7 18 169/109 96 07:14 (129) 11/22/18 Room Air 03:37 11/20/18 3 07:30 Intake and Output 11/21/18 11/21/18 11/22/18 1515:00 23:00 07:00 IntakeIntake Total 600 ml 450 ml BalanceBalance 600 ml 450 ml BRANDI GARZA NP November 22, 2018 09:41
[2018-11-22] MEDS ORDERED: POTASSIUM CHLORIDE (SR) 20 MEQ TAB PO STA (10:15)
--- NOTE | 2018-11-22 10:26 | PN ---
Date/Time of Note Date/Time of Note DATE: 11/22/18 TIME: :22 Assessment/Plan VTE Prophylaxis Risk score (from Ns)>0 risk: 2 SCD applied (from Nsg): Yes Pharmacological prophylaxis: other Lines/Catheters IV [facility]from [facility] Peripheral IV Assessment/Plan Hospital Course S: Patient had no acute events overnight. Seen by neurology team earlier today. Has no weakness symptoms presently, and bleeding well. O: VS- see below PHYSICAL EXAMINATION: GENERAL: lying in bed, No acute distress. HEENT: Pupils are equal, round, reactive to light. Extraocular muscles are intact. NECK: Supple, no thyromegaly. LUNGS: Clear to auscultation bilaterally. CARDIOVASCULAR: S1, S2 heard. No rubs or gallops. ABDOMEN: Soft, nontender, nondistended. Normal bowel sounds. No rebound or guarding. MUSCULOSKELETAL: No lower extremity edema bilaterally. NEUROLOGIC: Less eyelid droop and less facial droop on the left side. Otherwise no other focal deficits noted MRI brain: IMPRESSION: 1. 3 punctate areas of acute/recent infarct involving the right centrum semiovale white matter, with the largest measuring 5 x 8 mm. No evidence of hemorrhagic conversion. 2. No intracranial hemorrhage, mass lesion or hydrocephalous. 3. Mild peripheral and central cerebral volume loss. 4. Mild punctate periventricular and subcortical white matter lesions, likely related to chronic microangiopathic changes. CTA head neck: Impression: - no acute intracranial pathology, but there was moderate to severe atherosclerotic calcifications of the carotid siphons, intracranial vertebral artery as well as basilar artery. CT of head and neck showed no flow limiting intracranial stenosis or aneurysms. There is 0% to 50% stenosis of the bilateral extracranial, internal carotid arteries, bilateral anterograde flow in the vertebral arteries. 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 The lateral wall of the left maxillary sinus is imperceptible, rule out odontogenic keratocyst, or mucocele. ASSESSMENT AND PLAN: 63-year-old male coming in with prior history of stroke 1 month ago, hypertension, diabetes, high cholesterol who presents with left-sided weakness symptoms, rule out acute stroke versus transient ischemic attack. 1. Left-sided weakness symptoms- again MRI brain shows 3 punctate areas of acute/recent infarct involving the right centrum semiovale white matter. -Continue neuro checks every 4 hours, aspirin, statin, also on Plavix -Follow-up further recommendations from neurology consult, PT, OT, speech therapy consult. 2. Hypertension-blood pressure in the high normal range. -We will restart home losartan, continue hydralazine IV 10 mg systolic greater [id number]. 3. Prior history of stroke. See #1. 4. Diabetes- A1c -10.3 -Monitor, continue sliding scale insulin and continue home dose of Lantus. 5. High cholesterol. - Continue Lipitor. 6. Deep venous thrombosis prophylaxis. SCDs. Result Diagram: 11/22/1851211/22/18 05 Results 24hrs Laboratory Tests Test 11/21/18 11:40 11/21/18 15:40 11/21/18 17:28 11/21/18 20:45 Bedside Glucose 213 189 173 Urine Color YELLOW Urine Clarity SLIGHTLY CLOUDY A Urine pH 5.0 Urine Specific 1.025 [place] Urine Ketones NEGATIVE Urine Nitrite NEGATIVE Urine Bilirubin NEGATIVE Urine 1+ H Urobilinogen Urine Leukocyte NEGATIVE Esterase Urine Microscopic 5 RBC Urine Microscopic 3 WBC Urine Hemoglobin 1+ H Urine Glucose 1+ H Urine Total NEGATIVE Protein Urine Opiates Negative Screen Urine Negative Barbiturates Urine Negative Amphetamines Screen Urine Negative Benzodiazepines Screen Urine Cocaine Negative Screen Urine Negative Cannabinoids Test 11/22/18 05:13 11/22/18 07:20 White Blood Count 11.9 #H Red Blood Count 4.89 Hemoglobin 12.8 L Hematocrit 39.0 L Mean Corpuscular 79.8 L Volume Mean Corpuscular 26.2 L Hemoglobin Mean Corpuscular 32.8 Hemoglobin Concen t Red Cell 13.4 Distribution Width Platelet Count 205 Mean Platelet 10.3 Volume Immature 0.300 Granulocytes % Neutrophils % 81.8 H Lymphocytes % 9.8 L Monocytes % 7.6 Eosinophils % 0.3 Basophils % 0.2 Nucleated Red 0.0 Blood Cells % Immature 0.040 H Granulocytes # Neutrophils # 9.7 H Lymphocytes # 1.2 Monocytes # 0.9 Eosinophils # 0.0 Basophils # 0.0 Nucleated Red 0.0 Blood Cells # Sodium Level 139 Potassium Level 3.3 L Chloride Level 102 Carbon Dioxide 28 Level Anion Gap 9 Blood Urea 13 Nitrogen Creatinine 0.78 Est Glomerular > 60 Filtrat Rate mL/min Glucose Level 208 Calcium Level 9.0 Bedside Glucose 179 Exam/Review of Systems Exam Vitals Vital Signs Date Temp Pulse Resp B/P (MAP) Pulse Ox O2 O2 Flow FiO2 Time Delivery Rate 11/22/18 92 08:00 11/22/18 97.7 18 169/109 96 07:14 (129) 11/22/18 Room Air 03:37 11/20/18 3 07:30 Intake and Output 11/21/18 11/21/18 11/22/18 1414:59 22:59 06:59 IntakeIntake Total 600 ml 450 ml BalanceBalance 600 ml 450 ml Results Results 24hrs Laboratory Tests Test 11/21/18 11:40 11/21/18 15:40 11/21/18 17:28 11/21/18 20:45 Bedside Glucose 213 189 173 Urine Color YELLOW Urine Clarity SLIGHTLY CLOUDY A Urine pH 5.0 Urine Specific 1.025 [place] Urine Ketones NEGATIVE Urine Nitrite NEGATIVE Urine Bilirubin NEGATIVE Urine 1+ H Urobilinogen Urine Leukocyte NEGATIVE Esterase Urine Microscopic 5 RBC Urine Microscopic 3 WBC Urine Hemoglobin 1+ H Urine Glucose 1+ H Urine Total NEGATIVE Protein Urine Opiates Negative Screen Urine Negative Barbiturates Urine Negative Amphetamines Screen Urine Negative Benzodiazepines Screen Urine Cocaine Negative Screen Urine Negative Cannabinoids Test 11/22/18 05:13 11/22/18 07:20 White Blood Count 11.9 #H Red Blood Count 4.89 Hemoglobin 12.8 L Hematocrit 39.0 L Mean Corpuscular 79.8 L Volume Mean Corpuscular 26.2 L Hemoglobin Mean Corpuscular 32.8 Hemoglobin Concen t Red Cell 13.4 Distribution Width Platelet Count 205 Mean Platelet 10.3 Volume Immature 0.300 Granulocytes % Neutrophils % 81.8 H Lymphocytes % 9.8 L Monocytes % 7.6 Eosinophils % 0.3 Basophils % 0.2 Nucleated Red 0.0 Blood Cells % Immature 0.040 H Granulocytes # Neutrophils # 9.7 H Lymphocytes # 1.2 Monocytes # 0.9 Eosinophils # 0.0 Basophils # 0.0 Nucleated Red 0.0 Blood Cells # Sodium Level 139 Potassium Level 3.3 L Chloride Level 102 Carbon Dioxide 28 Level Anion Gap 9 Blood Urea 13 Nitrogen Creatinine 0.78 Est Glomerular > 60 Filtrat Rate mL/min Glucose Level 208 Calcium Level 9.0 Bedside Glucose 179 Medications Medication Current Medications IV Flush (NS 3 ml) 3 ml PER PROTOCOL IV ; Start 11/20/18 at 12:00 Ondansetron HCl (Zofran Inj) 4 mg Q6H PRN IV NAUSEA/VOMITING; Start 11/20/18 at 12:00 Acetaminophen (Tylenol Tab) 650 mg Q6H PRN PO .PAIN 1-3 OR TEMP Last administered on 11/22/18at 07:23; Admin Dose 650 MG; Start 11/20/18 at 12:00 Acetaminophen/ Hydrocodone Bitart (Felch (5/325)) 1 tab Q6H PRN PO .MOD PAIN 4- 6; Start 11/20/18 at 12:00 Morphine Sulfate (morphine) 2 mg Q4H PRN IV .SEVERE PAIN 7-10; Start 11/20/18 at 12:00 Docusate Sodium (Colace) 100 mg Q12H PRN PO .CONSTIPATION; Start 11/20/18 at 12:00 Magnesium Hydroxide (Milk Of Mag) 30 ml DAILY PRN PO .CONSTIPATION; Start 11/20/18 at 12:00 Lorazepam (Ativan) 0.5 mg Q6H PRN IV ANXIETY; Start 11/20/18 at 12:00 Albuterol/ Ipratropium (Duoneb) 3 ml Q4H RESP THERAPY PRN HHN SHORTNESS OF BREATH; Start 11/20/18 at 12:00 Hydralazine HCl (Apresoline) 10 mg Q6H PRN IV ELEVATED BLOOD PRESSURE; Start 11/20/18 at 12:00 Nitroglycerin (Nitroglycerin (Sl Tab) 0.4 Mg) 1 tab Q5M PRN SL ANGINA; Start 11/20/18 at 12:00 Diagnostic Test (Pha) (Accu-Chek) 1 ea 02 XX ; Start 11/21/18 at 02:00 Aspirin (Aspirin) 81 mg DAILY PO Last administered on 11/22/18at 08:22; Admin Dose 81 MG; Start 11/20/18 at 12:00 Calcium Carbonate (Oyster Shell Calcium) 1.25 gm DAILY PO Last administered on 11/22/18at 08:22; Admin Dose 1.25 GM; Start 11/21/18 at 09:00 Insulin Glargine (Lantus) 30 units QHS SC Last administered on 11/21/18at 21:01; Admin Dose 30 UNITS; Start 11/20/18 at 21:00 Atorvastatin Calcium (Lipitor) 80 mg DAILY PO Last administered on 11/22/18at 08:21; Admin Dose 80 MG; Start 11/20/18 at 12:00 Clopidogrel Bisulfate (plaVIX) 75 mg DAILY PO Last administered on 11/22/18at 08:21; Admin Dose 75 MG; Start 11/21/18 at 09:00 Miscellaneous Information 1 ea NOTE XX ; Start 11/20/18 at 12:30 Glucose (Glutose) 15 gm Q15M PRN PO DECREASED GLUCOSE; Start 11/20/18 at 12:30 Glucose (Glutose) 22.5 gm Q15M PRN PO DECREASED GLUCOSE; Start 11/20/18 at 12:30 Dextrose (D50w Syringe) 25 ml Q15M PRN IV DECREASED GLUCOSE; Start 11/20/18 at 12:30 Dextrose (D50w Syringe) 50 ml Q15M PRN IV DECREASED GLUCOSE; Start 11/20/18 at 12:30 Glucagon (Glucagen) 1 mg Q15M PRN IM DECREASED GLUCOSE; Start 11/20/18 at 12:30 Glucose (Glutose) 15 gm Q15M PRN BUCCAL DECREASED GLUCOSE; Start 11/20/18 at 12:30 Insulin Aspart (Novolog Insulin Pen) NOVOLOG *MILD* ALGORI... AC DINNER BEDTIME SC Last administered on 11/21/18at 21:01; Admin Dose 1 UNIT; Start 11/21/18 at 17:30 ROXANNA CHONG November 22, 2018 10:26
[2018-11-22] MEDS ORDERED: LOSARTAN 25 MG TAB PO SCH (10:30)
--- NOTE | 2018-11-22 10:31 | PDOCDIS ---
Discharge Instructions CONDITION [id number] Patient Condition: [id number] Stable ACTIVITY: [id number] Activity Restrictions: [id number] Slowly Increase Activity Rest between Activity Avoid heavy lifting FOLLOW UP/APPOINTMENTS Follow-up Plan Please take your medications as prescribed, see your doctor in the clinic in the next 1 week. ROXANNA CHONG November 22, 2018 10:31
[2018-11-22] MEDS ORDERED: CLOP75TA28 PO (10:33)
[2018-11-22] MEDS ORDERED: ASPI-903 PO (10:33)
[2018-11-22] MEDS ORDERED: ATOR-2 PO (10:33)
--- NOTE | 2018-11-22 10:38 | DS ---
Date/Time of Note Date/Time of Note DATE: 11/22/18 TIME: 10:34 Discharge Summary Admission/Discharge Info Admit Date/Time November 20, 2018 at 08:52 Discharge Date/Time Discharge Diagnosis 1. Left-sided weakness symptoms-secondary to acute stroke, this admission MRI brain shows 3 punctate areas of acute/recent infarct involving the right centrum semiovale white matter. 2. Hypertension 3. Prior history of stroke. See #1. 4. Diabetes- A1c -10.3 5. High cholesterol. Patient Condition: Stable Procedures MRI brain: IMPRESSION: 1. 3 punctate areas of acute/recent infarct involving the right centrum semiovale white matter, with the largest measuring 5 x 8 mm. No evidence of hemorrhagic conversion. 2. No intracranial hemorrhage, mass lesion or hydrocephalous. 3. Mild peripheral and central cerebral volume loss. 4. Mild punctate periventricular and subcortical white matter lesions, likely related to chronic microangiopathic changes. CTA head neck: Impression: - no acute intracranial pathology, but there was moderate to severe atherosclerotic calcifications of the carotid siphons, intracranial vertebral artery as well as basilar artery. CT of head and neck showed no flow limiting intracranial stenosis or aneurysms. There is 0% to 50% stenosis of the bilateral extracranial, internal carotid arteries, bilateral anterograde flow in the vertebral arteries. 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 The lateral wall of the left maxillary sinus is imperceptible, rule out odontogenic keratocyst, or mucocele. 2D echo: Conclusions: Normal left ventricular systolic function. Normal left ventricular cavity size. Mild concentric left ventricular hypertrophy. Ejection fraction is visually estimated at 60 %. Tissue Doppler/Mitral Doppler indices are consistent with impaired relaxation (Stage I diastolic dysfunction). Normal right ventricular size. Normal right ventricular systolic function. The left atrium is normal in size. The right atrium is normal in size. No significant valvular stenosis or regurgitation seen. Normal pericardium with no significant pericardial effusion. Hx of Present Illness 63-year-old male with a prior history of stroke that occurred 1 month ago treated at [facility], hypertension, diabetes, high cholesterol, who presents after extensive left-sided weakness symptoms. The symptoms began as a left- sided facial droop and also some dysarthria. He also had some left upper and lower extremity weakness. The symptoms began early this morning. His last known well time apparently was around 8:00 last night. Denies any upper or lower GI bleeding. No nausea, vomiting. No fevers or chills. No diarrhea or constipation. No chest pain, shortness of breath. He was brought in by EMS. When he arrived, he was found to have elevated systolic blood pressure in the 170 to 180 range and code stroke was called and the teleneurologist evaluated the patient who recommended further brain imaging studies including head CT and CTA of head and neck. This demonstrated no large vessel occlusion, but that did demonstrate calcified atherosclerotic plaque with mild flow limiting stenosis in the bilateral carotid arteries. Because of that, the patient got a dose of Plavix as recommended by the neurologist. The patient also received high dose aspirin as well. Presently, his symptoms appear to be resolving. Hospital Course Patient was admitted to telemetry floor. Seen by telemetry neurologist in the emergency room for that, and then followed by neurology team while here in the hospital. Because the initial CTA of the head and neck was completed and showed no large vessel occlusion, but did demonstrate calcified atherosclerotic plaque with mild flow limiting stenosis in bilateral carotid arteries, the telemetry neurologist recommended Plavix loading dose and then daily Plavix but the patient got. Patient also was placed on high dose Lipitor and aspirin. Patient's weakness symptoms improved. He was able to ambulate, tolerated p.o. diet. Blood pressure remained stable by the day of discharge as well as other labs and vital signs. After getting clearance from the neurology and patient will be discharged home today improved condition. See below for full list of discharge medications. Home Meds Active Scripts Atorvastatin* (Atorvastatin*) 80 Mg Tablet, 80 MG PO DAILY, #30 TAB 4 Refills Prov:ROXANNA CHONG S. 11/22/18 Clopidogrel Bisulfate (Clopidogrel) 75 Mg Tablet, 75 MG PO DAILY, #30 TAB 4 Refills Prov:ROXANNA CHONG S. 11/22/18 Aspirin* (Aspirin* Chew) 81 Mg Tab.chew, 81 MG PO DAILY, #20 TAB.CHEW Prov:ROXANNA CHONG S. 11/22/18 Reported Medications Calcium Carbonate ([id number]) 500 Mg Tablet, 500 MG PO DAILY, TAB 11/20/18 Losartan Potassium* (Losartan Potassium*) 25 Mg Tablet, 25 MG PO DAILY, TAB 11/20/18 Insulin Glargine,Hum.rec.anlog (Basaglar J Carlosikpen U-100) 100 Unit/1 Ml Insuln.pen, 30 UNIT SC QHS, EA 11/20/18 Metformin* (Glucophage*) 500 Mg Tab, 500 MG PO DAILY, #90 TAB 11/20/18 Follow-up Plan Please take your medications as prescribed, see your doctor in the clinic in the next 1 week. Primary Care Provider Not On Staff Doctor Time spent on discharge: > 30 minutes Pending Labs Laboratory Tests Test 11/21/18 11:40 11/21/18 15:40 11/21/18 17:28 11/21/18 20:45 Bedside 213 189 173 Glucose mg/dL (70-220) mg/dL (70-220) mg/dL (70-220) Urine Color YELLOW (YELLOW ) Urine Clarity SLIGHTLY CLOUD Y (CLEAR) Urine pH 5.0 (5.0-9.0) Urine Specific 1.025 (1.003-1 Bliss .030) Urine Ketones NEGATIVE mg/dL (NEGATIV E) Urine Nitrite NEGATIVE mg/dL (NEGATIV E) Urine NEGATIVE Bilirubin mg/dL (NEGATIV E) Urine 1+ Urobilinogen mg/dL (NEGATIV E) Urine Leukocyte NEGATIVE Emmy/u Esterase l Urine 5 /HPF (0-5) Microscopic RBC Urine 3 /HPF (0-5) Microscopic WBC Urine 1+ Hemoglobin mg/dL (NEGATIV E) Urine Glucose 1+ mg/dL (NEGATIV E) Urine Total NEGATIVE Protein mg/dl (NEGATIV E) Urine Opiates Negative (NEGA Screen TIVE) Urine Negative (NEGA Barbiturates TIVE) Urine Negative (NEGA Amphetamines TIVE) Screen Urine Negative (NEGA Benzodiazepines TIVE) Screen Urine Cocaine Negative (NEGA Screen TIVE) Urine Negative (NEGA Cannabinoids TIVE) Test 11/22/18 05:13 11/22/18 07:20 White Blood 11.9 Count 10^3/ul (4.8-10 .8) Red Blood 4.89 Count 10^6/ul (4.70-6 .10) Hemoglobin 12.8 g/dl (14.0-18.0 ) Hematocrit 39.0 % (42.0-52.0) Mean 79.8 Corpuscular fl (82.0-101.0) Volume Mean 26.2 Corpuscular pg (29.0-33.0) Hemoglobin Mean 32.8 Corpuscular g/dl (32.0-37.0 Hemoglobin Conc ) ent Red Cell 13.4 Distribution % (11.5-14.5) Width Platelet Count 205 10^3/UL (140-41 5) Mean Platelet 10.3 Volume fl (7.4-10.4) Immature 0.300 Granulocytes % % (0.001-0.429) Neutrophils % 81.8 % (39.0-77.0) Lymphocytes % 9.8 % (15.0-51.0) Monocytes % 7.6 % (0.0-11.0) Eosinophils % 0.3 % (0.0-7.0) Basophils % 0.2 % (0.0-2.0) Nucleated Red 0.0 Blood Cells % /100WBC (0.0-0. 0) Immature 0.040 Granulocytes # 10^3/ul (0.0-0. 031) Neutrophils # 9.7 10^3/ul (1.6-7. 5) Lymphocytes # 1.2 10^3/ul (0.8-2. 9) Monocytes # 0.9 10^3/ul (0.3-0. 9) Eosinophils # 0.0 10^3/ul (0.0-0. 5) Basophils # 0.0 10^3/ul (0.0-0. 1) Nucleated Red 0.0 Blood Cells # 10^3/ul (0.0-0. 0) Sodium Level 139 mmol/L (135-144 ) Potassium 3.3 Level mmol/L (3.5-5.1 ) Chloride Level 102 mmol/L (97-110) Carbon Dioxide 28 Level mmol/L (21-31) Anion Gap 9 (5-13) Blood Urea 13 mg/dl (7-20) Nitrogen Creatinine 0.78 mg/dl (0.61-1.2 4) Est Glomerular > 60 Filtrat mL/min (>60) Rate mL/min Glucose Level 208 mg/dl (70-220) Calcium Level 9.0 mg/dl (8.4-10.2 ) Bedside 179 Glucose mg/dL (70-220) RATEVIN HERNANDEZROXANNA S. November 22, 2018 10:38
== END 2018-11-22 11:50 | disposition home or self-care (01) | DRG 65 ==
LOC: E/R 07:26 → 6WM 08:52 → SUATTDRO 11:44
PROVIDERS: ADMIT Hospitalist; ATTEND Hospitalist
DX: I63.9 Cerebral infarction, unspecified (principal); G81.94 Hemiplegia, unspecified affecting left nondominant side; E11.65 Type 2 diabetes mellitus with hyperglycemia; I10 Essential (primary) hypertension; E78.5 Hyperlipidemia, unspecified; R29.810 Facial weakness; R47.1 Dysarthria and anarthria; E87.6 Hypokalemia; Z79.4 Long term (current) use of insulin; Z79.82 Long term (current) use of aspirin; Z79.02 Long term (current) use of antithrombotics/antiplatelets
CPT/HCPCS: 70450; 70496; 70498; 70551; 71045; 80048; 80061; 80307; 81001; 82550; 82553; 82962; 83036; 83735; 84100; 84439; 84443; 84484; 85025; 85610; 85651; 85730; 86592; 92610; 93005; 93306; 93880; 97161; 97166; J0360; J1815; J2060